=== PATIENT | female | born 1950 | race Hispanic/Latino ===

== ENCOUNTER 2021-01-16 11:59 | Observation (INO) | payer MEDICARE, OTHER ==
[~2021-01-16] VITALS: Ht 160 cm; Wt 84.8 kg
[2021-01-16] MEDS ORDERED: MAGNESIUM/ALUMINUM/SIMETHICONE 30 ML UDC ONE (13:10)
[2021-01-16] MEDS ORDERED: LIDOCAINE VISC 2% SOLN 15 ML UDC ONE (13:10)
[2021-01-16] MEDS ORDERED: BELLADONNA ALK/PHENOBARBITAL 5 ML UDC ONE (13:10)
[2021-01-16] MEDS ORDERED: DONNATAL/LIDOCAINE/MAALOX 30 ML SUSP PO ONE (13:30)
[2021-01-16] MEDS ORDERED: ASPIRIN 81 MG CHEW TAB ONE (14:15)
[2021-01-16] MEDS ORDERED: ASPIRIN 81 MG CHEW TAB PO ONE (14:30)
[2021-01-16] MEDS ORDERED: MYSOLINE50 MG (16:19)
[2021-01-16] MEDS ORDERED: CARVEDILOL6.25 MG (16:19)
[2021-01-16] MEDS ORDERED: SERTRALINE HCL50 MG (16:19)
[2021-01-16] MEDS ORDERED: OMEPRAZOLE40 MG (16:19)
[2021-01-16] MEDS ORDERED: METFORMIN HCL1000 MG (16:19)
[2021-01-16] MEDS ORDERED: ROSUVASTATIN CA40 MG (16:19)
[2021-01-16] MEDS ORDERED: GLIPIZIDE ER10 MG (16:19)
[2021-01-16 16:20] VITALS: BP 124/76
[2021-01-16 17:10] VITALS: BP 124/76
[2021-01-16 20:00] VITALS: BP 132/71
[2021-01-16] MEDS ORDERED: ONDANSETRON HCL INJ 2MG/ML 2ML 2 MG/ML VIAL IV PRN (20:00)
[2021-01-16] MEDS ORDERED: ACETAMINOPHEN 325 MG TAB PO PRN (20:00)
[2021-01-16] MEDS: METOPROLOL TARTRATE 25 MG TAB PO SCH (20:44)
[2021-01-16] MEDS: INSULIN LISPRO 100 UNIT/1 ML 3ML VIAL SQ SCH (20:44)
[2021-01-16] MEDS ORDERED: PRIMIDONE 50 MG TAB PO SCH (21:00)
[2021-01-17] VITALS: BP 115/64
[2021-01-17 04:00] VITALS: BP 129/68
[2021-01-17 05:12] LABS: BASOPHILS % 0.3 % (0.0-1.0); EOSINOPHILS % 0.2 % (0.0-6.0); HEMATOCRIT 39.7 % (34.2-44.1); HEMOGLOBIN 12.9 g/dL (12.0-16.0); LYMPHOCYTES # (AUTO) 1.7 (1.0-3.2); LYMPHOCYTES % 25.1 % (18.0-39.1); MEAN CORPUSCULAR HEMOGLOBIN 28.5 pg (28-32); MEAN CORPUSCULAR HGB CONC 32.5 g/dL (31-35); MEAN CORPUSCULAR VOLUME 87.8 fL (81-99); MONOCYTES # (AUTO) 0.4 (0.2-0.8); MONOCYTES % 6.7 % (4.4-11.3); NEUTROPHILS # (AUTO) 4.5 (2.1-6.9); NEUTROPHILS % 67.4 % (38.7-80.0); PLATELET COUNT 235 x10e3/uL (140-360); RED BLOOD COUNT 4.52 x10e6/uL (3.6-5.1); RED CELL DISTRIBUTION WIDTH 12.9 % (11.7-14.4)
[2021-01-17 05:47] LABS: ALBUMIN 3.7 g/dL (3.5-5.0); BILIRUBIN,DIRECT 0.2 mg/dL (0.0-0.5); CALCIUM 9.3 mg/dL (8.4-10.2); CHOL/HDL RATIO 2.4 (3.0-3.6); CREATININE, SERUM 0.67 mg/dL (0.57-1.11)
[2021-01-17] MEDS: INSULIN LISPRO 100 UNIT/1 ML 3ML VIAL SQ SCH (07:30)
[2021-01-17 07:43] VITALS: BP 116/56
[2021-01-17] MEDS: METOPROLOL TARTRATE 25 MG TAB PO SCH (08:30)
[2021-01-17 08:32] LABS: THYROID STIMULATING HORMONE 2.026 uIU/mL (0.350-4.940)
[2021-01-17 08:39] VITALS: BP 116/56
[2021-01-17] MEDS ORDERED: METFORMIN HCL 500 MG TAB PO SCH (09:00)
[2021-01-17] MEDS ORDERED: ASPIRIN 325 MG TAB PO SCH (09:00)
[2021-01-17] MEDS ORDERED: SERTRALINE HCL 50 MG TAB PO SCH (09:00)
== END 2021-01-17 11:00 | disposition home or self-care (01) ==
LOC: FSED 12:01 → ERHOLD 14:08 → MED/SURG 15:15
PROVIDERS: ADMIT Internal Medicine; ATTEND Internal Medicine
DX: R07.89 Other chest pain (principal); I10 Essential (primary) hypertension; E11.9 Type 2 diabetes mellitus without complications; Z20.822 Contact with and (suspected) exposure to COVID-19
CPT/HCPCS: 36415 ×2; 71045; 80048; 80053; 80061; 80076; 82553; 82948 ×2; 83690; 83735; 83880; 84443; 84484 ×2; 85025; 85379; 93005; 94799 ×2; 99284; G0378 ×2; U0002